=== PATIENT | male | born 1965 | race Caucasian/White ===

== ENCOUNTER → 2019-08-26 11:38 | Outpatient (BNVA) | payer BC, MEDICARE, SELFPAY | PROVIDERS: Visit Provider Family Medicine | DX: J44.9 Chronic obstructive pulmonary disease, unspecified (principal); Z13.220 Encounter for screening for lipoid disorders; Z13.228 Encounter for screening for other metabolic disorders | CPT/HCPCS: 80053; 80061; 84153; 84443; 85025 ==

== ENCOUNTER → 2020-01-03 10:01 | Outpatient (BNVA) | payer BC, MEDICARE, SELFPAY | PROVIDERS: Visit Provider Family Medicine | DX: Z12.11 Encounter for screening for malignant neoplasm of colon (principal); D49.89 Neoplasm of unspecified behavior of other specified sites; N53.9 Unspecified male sexual dysfunction; E78.5 Hyperlipidemia, unspecified; J44.9 Chronic obstructive pulmonary disease, unspecified | CPT/HCPCS: 80053; 80061; 85025 ==

== ENCOUNTER → 2020-04-11 11:37 | Outpatient (BNVA) | payer BC, MEDICARE, SELFPAY | PROVIDERS: PCP Family Medicine; Referring Provider Family Medicine; Visit Provider Orthopaedic Surgery | DX: M67.40 Ganglion, unspecified site (principal); M25.569 Pain in unspecified knee | CPT/HCPCS: 73560; 73565; 81003 ==

== ENCOUNTER → 2020-05-02 10:36 | Outpatient (BNVA) | payer BC, MEDICARE, SELFPAY | PROVIDERS: PCP Family Medicine; Visit Provider Family Medicine | DX: J44.9 Chronic obstructive pulmonary disease, unspecified (principal); E78.1 Pure hyperglyceridemia; Z12.11 Encounter for screening for malignant neoplasm of colon; G47.30 Sleep apnea, unspecified | CPT/HCPCS: 80053; 80061; 84443; 85025 ==

== ENCOUNTER → 2020-08-16 09:40 | Outpatient (BNVA) | payer BC, MEDICARE, SELFPAY | PROVIDERS: PCP Family Medicine; Visit Provider Family Medicine | DX: E78.1 Pure hyperglyceridemia (principal); R53.83 Other fatigue; J44.9 Chronic obstructive pulmonary disease, unspecified; Z68.28 Body mass index [BMI] 28.0-28.9, adult; F17.210 Nicotine dependence, cigarettes, uncomplicated; Z71.89 Other specified counseling | CPT/HCPCS: 80053; 80061; 84403; 84443; 85025 ==

== ENCOUNTER → 2020-12-25 11:09 | Outpatient (BNVA) | payer MEDICARE, SELFPAY | PROVIDERS: PCP Family Medicine; Visit Provider Urology | DX: N48.6 Induration penis plastica (principal); R68.82 Decreased libido; E78.1 Pure hyperglyceridemia; J44.9 Chronic obstructive pulmonary disease, unspecified; F17.211 Nicotine dependence, cigarettes, in remission; Z71.89 Other specified counseling | CPT/HCPCS: 80053; 80061; 81003; 84403; 84443; 85025 ==

== ENCOUNTER → 2021-04-23 11:37 | Outpatient (BNVA) | payer MEDICARE, SELFPAY | PROVIDERS: PCP Family Medicine; Visit Provider Family Medicine | DX: R68.82 Decreased libido (principal) | CPT/HCPCS: 84403 ==

== ENCOUNTER 2022-01-02 20:33 | Emergency (ER) | payer MEDICARE, SELFPAY ==
[2022-01-02 20:59] VITALS: BMI 24.1
--- NOTE | 2022-01-02 21:01 | XRR_ITS ---
PROCEDURE INFORMATION: Exam: XR Right Ankle Exam date and time: 01/02/2022 9:08 PM Age: 56 years old Clinical indication: Injury or trauma; Other: Twisted ankle; Blunt trauma; Right TECHNIQUE: Imaging protocol: Radiologic exam of the Right ankle. Views: 3 or more views. COMPARISON: No relevant prior studies available. FINDINGS: Bones/joints: Normal joint alignment. No erosion. No significant arthritis. No definite fractures are visible, however on the lateral view linear lucencies are crossing the calcaneus. Uncertain if this is projectional or could represent acute fracture. Soft tissues: Diffuse soft tissue swelling. XR/XR ankle RT min 3V* [id number] IMPRESSION: Lucencies cross the calcaneus. Possibly projectional, but cannot exclude calcaneus fracture. Correlate for site of pain. If patient has direct heel pain and correlating mechanism, dedicated calcaneus views recommended.
[2022-01-02 21:02] VITALS: BP 142/94; PULSE 102; RESP 16; TEMP 36.6; O2SAT 98
[2022-01-02] MEDS: HYDROcodone-acetaminophen 5-325 mg Tablet 1 TAB PO ×2 (21:09→21:51)
--- NOTE | 2022-01-02 21:22 | ED_ITS ---
HPI - Extremity Problem General: Chief complaint: Extremity Injury, Lower Stated complaint: Ankle Pain Time Seen by Provider: 01/02/22 20:58 Source: patient Mode of arrival: ambulatory Limitations: no limitations History of Present Illness: 56-year-old male sent from long-term he states that he had slipped on a step twisted his ankle also struck his heel. He states he has right ankle pain laterally along with pain over his calcaneus. States pain sharp in nature rated a 6 out of 10 has not been able to bear weight. Associated symptoms: Deny chest pain, fever(s) or rash Review of Systems Const: Denies: fever(s), chills, body aches or change in appetite Eyes: Denies: blurry vision or eye discomfort ENMT: Denies: throat pain or dental pain Card: Denies: chest pain Resp: Denies: dyspnea GI: Denies: abdominal pain, nausea, vomiting or diarrhea : Denies: dysuria Musc: Reports: extremity pain Skin/Breast: Denies: rash Neuro: Denies: headache(s) Psych: Denies: depression Vince/Lymph: Denies: easy bruising All/Imm: Denies: urticaria PFSH ED PFSH: Medical History COPD (chronic obstructive pulmonary disease) Hx of hepatitis C (~2009) did 72 weeks of treatment Peyronie's disease Smoker Family History Father , at age 72 Dementia Lung disease Social History Alcohol intake: former Counseling given: No Marital status: Current occupational status: disabled History of recent travel: No Physical Exam Const: COMMON NORMALS: no acute distress and patient oriented x3 HENMT: COMMON NORMALS: normocephalic HEAD & SCALP: normocephalic Eye: COMMON NORMALS: conjunctivae normal CONJUNCTIVA: Yes conjunctivae normal Neck/C-Spine: COMMON NORMALS: full ROM and supple Chest: COMMONS NORMALS: normal inspection of the chest Resp: COMMON NORMALS: normal respiratory effort Cardio: COMMON NORMALS: regular rate, regular rhythm and No murmurs present (Cardio) RATE: regular rate RHYTHM: regular rhythm GI: INSPECTION: Yes normal to inspection Extremity: NARRATIVE EXTREMITY EXAM: Swelling to right lateral ankle tenderness over the ankle along with the calcaneus. Neuro: COMMON NORMALS: patient oriented x3, moves all extremities and no focal motor deficits Psych: COMMON NORMALS: mental status grossly normal, Normal thought process present and cooperative THOUGHT PROCESS: Normal thought process present Skin: COMMON NORMALS: no rashes or lesions noted and no wounds GENERAL SKIN EXAM: no rashes or lesions noted Course Vital Signs: Vital signs: Vital Signs Temperature 97.8 F 01/02/22 21:02 Pulse Rate 102 H 01/02/22 21:02 Respiratory Rate 16 01/02/22 21:02 Blood Pressure 142/94 01/02/22 21:02 Pulse Oximetry 98 01/02/22 21:02 Oxygen Delivery Me thod 01/02/22 21:02 MDM - Extremity (Nontraumatic) Medical Decision Making Patient presents with an ankle sprain x-ray shows a possible calcaneus fracture as well. We will splint him having immobilized and follow-up with podiatry. Discharge Plan Discharge Patient Disposition: Home Clinical Impression: Ankle sprain and strain, Calcaneal fracture Condition: Stable Prescriptions: No Action naproxen sodium [Aleve] 220 mg tablet 220 mg PO BID PRN marijuana PO PRN testosterone cypionate 200 mg/mL kit 200 mg IM .monthly Qty: 1 2RF aspirin 325 mg tablet 325 mg PO DAILY (DME) nebulizer supplies See Rx Instructions .Route .MEDSUPPLY Qty: 1 0RF Rx Instructions: As directed albuterol sulfate 2.5 mg /3 mL (0.083 %) solution for nebulization 2.5 mg INHALATION Q6H PRN (Reason: bronchospasm) Qty: 360 3RF fenofibrate 160 mg tablet See Rx Instructions .ROUTE .COMPLEX Qty: 90 0RF Dose Instruction: TAKE 1 TABLET BY MOUTH DAILY Rx Instructions: TAKE 1 TABLET BY MOUTH DAILY albuterol sulfate 90 mcg/actuation HFA aerosol inhaler See Rx Instructions .ROUTE .COMPLEX Qty: 8.5 3RF Dose Instruction: INHALE 2 PUFFS INTO LUNGS EVERY 6 HOURS NEEDED FOR SHORTNESS OF BREATH OR WHEEZING Rx Instructions: INHALE 2 PUFFS INTO LUNGS EVERY 6 HOURS NEEDED FOR SHORTNESS OF BREATH OR WHEEZING Spiriva with HandiHaler 18 mcg capsule, w/inhalation device 1 cap inhalation DAILY Qty: 60 2RF Rx Instructions: puncture 1 cap using device; one dose = 2 inhalations Discharge Orders: Discharge ED (Routine); Ordered 01/02/22 Ordered By: Sonya Cai Referrals: Romeo Martell DPM [Physician] - 1-3 days Aranza Mullins MD [Primary Care Provider] - Discharge Diet: Advance as tolerated Discharge Activity: Resume usual activity Patient Instructions: Ankle Sprain (ED), Calcaneal Fracture (ED) Coding Level of Care Code ED Surg Nurse for Marian Hager
[2022-01-02 21:59] VITALS: PULSE 87; RESP 20; O2SAT 97
--- NOTE | 2022-01-03 13:46 | DCPLANNER ---
Addendum entered by Nilsa Johnson 01/10/22 12:00: Patient had a follow up appointment scheduled with ortho - patient did attend appointment. Addendum entered by Nilsa Johnson 01/07/22 16:20: Patient has a follow up appointment scheduled for Thursday, January 08, 2022 at 2:[address] Martell at ortho. Clinic will call patient with appointment information. Original Note: systems project manager had message to schedule a follow up appointment with ortho. systems project manager sent patients information to the front office staff at ortho. Patients information will be printed and reviewed. Clinic will call patient with appointment information.
== END 2022-01-02 22:02 | disposition home or self-care (01) ==
PROVIDERS: Emergency Provider Emergency Medicine; PCP Family Medicine
DX: S92.001A Unspecified fracture of right calcaneus, initial encounter for closed fracture (principal); S96.911A Strain of unspecified muscle and tendon at ankle and foot level, right foot, initial encounter; W18.43XA Slipping, tripping and stumbling without falling due to stepping from one level to another, initial encounter; Y92.89 Other specified places as the place of occurrence of the external cause; Z86.19 Personal history of other infectious and parasitic diseases
CPT/HCPCS: 29515; 73610; 99283; E0114

== ENCOUNTER 2022-01-08 15:41 | Outpatient (CLI) | payer MEDICARE, SELFPAY | END 2022-01-08 15:42 | disposition home or self-care (01) | LOC: SPT 15:42 | PROVIDERS: PCP Family Medicine; Visit Provider Podiatrist Foot & Ankle Surgery | DX: S92.001D Unspecified fracture of right calcaneus, subsequent encounter for fracture with routine healing (principal); X58.XXXD Exposure to other specified factors, subsequent encounter | CPT/HCPCS: 97760; L4361 ==

== ENCOUNTER → 2022-02-13 07:42 | Outpatient (BNVA) | payer MEDICARE, SELFPAY | PROVIDERS: PCP Family Medicine; Visit Provider Podiatrist Foot & Ankle Surgery | DX: S92.014A Nondisplaced fracture of body of right calcaneus, initial encounter for closed fracture (principal); W18.40XA Slipping, tripping and stumbling without falling, unspecified, initial encounter | CPT/HCPCS: 73650 ==

== ENCOUNTER → 2022-03-13 08:27 | Outpatient (BNVA) | payer MEDICARE, SELFPAY | PROVIDERS: PCP Family Medicine; Visit Provider Podiatrist Foot & Ankle Surgery | DX: S92.014D Nondisplaced fracture of body of right calcaneus, subsequent encounter for fracture with routine healing (principal); W10.9XXD Fall (on) (from) unspecified stairs and steps, subsequent encounter | CPT/HCPCS: 73650; 99214 ==

== ENCOUNTER 2022-11-18 11:04 | Outpatient (CLI) | payer OTHER, SELFPAY ==
--- NOTE | 2022-11-18 12:26 | XR_ITS ---
WS: [id number] EXAMINATION: XR chest 2V* [id number] REASON FOR EXAM: COPD COMPARISON: None available. ORDER DATE: 11/18/2022 12:38 PM FINDINGS: The lungs are clear of infiltrate, but appear hyperinflated. The cardiac and mediastinal outlines are unremarkable. There are no significant pleural effusions . No significant abnormalities are noted in the spine or remainder of the bony thorax. XR/XR chest 2V* [id number] IMPRESSION: NO ACUTE PULMONARY CHANGE. HYPERINFLATION POSSIBLY DUE TO COPD
[2022-11-18 13:10] VITALS: PULSE 84; RESP 18; O2SAT 97
[2022-11-18] MEDS: albuterol 2.5 mg/3 mL Neb INHALATION (13:10)
[2022-11-18 13:15] VITALS: PULSE 88
== END 2022-11-18 11:05 | disposition home or self-care (01) ==
PROVIDERS: PCP Family Medicine; Visit Provider Dermatology
DX: J44.9 Chronic obstructive pulmonary disease, unspecified (principal)
CPT/HCPCS: 71046; 94060

== ENCOUNTER 2024-03-10 15:52 | Emergency (ER) | payer MEDICARE, SELFPAY ==
--- NOTE | 2024-03-10 15:53 | XRR_ITS ---
PROCEDURE INFORMATION: Exam: XR Chest Exam date and time: 03/10/2024 6:06 PM Age: 58 years old Clinical indication: Shortness of breath; Additional info: SOB TECHNIQUE: Imaging protocol: Radiologic exam of the chest. Views: 1 view. COMPARISON: CR XR chest 2V* [id number] 11/18/2022 12:38 PM FINDINGS: Lungs: Unremarkable. No consolidation. Pleural spaces: Unremarkable. No pleural effusion. No pneumothorax. Heart/Mediastinum: Unremarkable. No cardiomegaly. Bones/joints: Unremarkable. XR/XR chest 1V portable [id number] IMPRESSION: No acute findings.
--- NOTE | 2024-03-10 15:57 | ECG_ITS ---
[facility] Test Date: 2024-03-10 Pat Name: Nikolai De Leon Department: Room: Gender: Male Fiberglasser: : 1965 Requested By: Sonya Cai Order Number: [id number] Shweta MD: Henri Shaw M.D. Measurements Intervals Gordon Rate: 112 P: 72 LA: 155 QRS: 55 QRSD: 64 T: 76 QT: 308 QTc: 421 Interpretive Statements SINUS TACHYCARDIA POSSIBLE LEFT ATRIAL ENLARGEMENT [-0.1mV P-WAVE IN V1/V2] ABNORMAL RHYTHM ECG No previous ECG available for comparison Electronically Signed On 03-10-2024 21:18:54 [employer] by Henri Shaw M.D. [email or web address]
[2024-03-10 16:00] VITALS: BP 133/92; PULSE 114; RESP 22; TEMP 37.6; O2SAT 95; BMI 26.9
[2024-03-10 17:10] LABS: Basophils # 0.1 10^3/uL (0.0-0.1); Basophils % 0.4 %; Eosinophils # 0.2 10^3/uL (0.0-0.8); Eosinophils % 1.1 %; Hematocrit 47.8 % (37-53); Lymphocytes # 1.7 10^3/uL (0.8-4.8); Lymphocytes % 12.6 %; Mean Corpuscular HGB Conc 32.4 g/dL (30-55); Mean Corpuscular Hemoglobin 28.4 pg (27-33); Mean Corpuscular Volume 87.5 fl (82-101); Mean Platelet Volume 9.6 fL (7.4-10.4); Monocytes # 1.3 10^3/uL (0.2-0.9); Monocytes % 9.6 %; Nucleated Red Blood Cells % 0 %; Platelet Count 281 10^3/cmm (157-399); Red Blood Count 5.46 10^6/uL (3.85-5.65); Red Cell Distribution Width 12.9 % (12.1-15.1)
[2024-03-10 17:36] LABS: Alanine Aminotransferase 22 U/L (0-41); Albumin Level 3.9 g/dL (3.5-5.2); Alkaline Phosphatase 82 U/L (40-130); Blood Urea Nitrogen 8 mg/dL (6-20); Calcium 8.8 mg/dL (8.5-10.5); Carbon Dioxide 26 mmol/L (22-29); Chloride 101 mmol/L (98-107); Globulin 3.8 g/dL (1.3-4.6); Glomerular Filtration Rate 116.7 mL/min (90-130); Glucose 106 mg/dL (65-115); NT Pro B Type Natriuretic Pept 37 pg/mL (0-125); Osmolality Calculated 285 mOsm/kg (285-295); Sodium 138 mmol/L (136-145); Total Bilirubin 0.3 mg/dL (0.15-1.2); Total Protein 7.7 g/dL (6.6-8.7)
[2024-03-10 18:22] LABS: Anion Gap 15.5 (5-19); Aspartate Amino Transferase 27 U/L (0-40); Potassium 4.5 mmol/L (3.5-5.1)
--- NOTE | 2024-03-10 19:30 | ED_ITS ---
HPI - SOB/Dyspnea 2 General: Chief Complaint: Shortness of Breath/Dyspnea Stated Complaint: SOB Time Seen by Provider: 03/10/24 19:25 History of Present Illness: HPI Narrative: 58-year-old man with history of COPD who presents emergency room with worsening shortness of breath. This been going on for couple days now. He has had fevers at home. Temp is 99.6 on arrival here. Is not requiring oxygen and does not require oxygen at home. No chest pain. No altered mental status. He has had increased cough. No abdominal pain. No nausea or vomiting. Related Data Home Medications Medication Instructions Recorded Confirmed aspirin 325 mg tablet 325 mg PO DAILY 08/25/19 03/13/22 marijuana PO PRN 12/25/20 03/13/22 naproxen sodium 220 mg tablet 220 mg PO BID PRN 12/25/20 03/13/22 (Aleve) Previous Rx's Medication Instructions Recorded nebulizer supplies #1 ea 09/26/20 fenofibrate 160 mg tablet See Rx Instructions .Route 12/10/20 .COMPLEX #90 tabs testosterone cypionate 200 mg/mL 200 mg IM .monthly #1 ea 04/23/21 intramuscular kit tiotropium bromide 18 mcg capsule 1 cap inhalation DAILY #60 12/12/21 with inhalation device (Spiriva inhalations with HandiHaler) diphenhydramine HCl 25 mg capsule 25 mg PO BID #30 caps 01/02/22 (Allergy Medication) CAM Boot to the Right #1 ea 01/08/22 albuterol sulfate 2.5 mg/3 mL 2.5 mg (3 mL) inhalation Q6H PRN 04/07/22 (0.083 %) solution for nebulization bronchospasm #360 mL albuterol sulfate 90 mcg/actuation See Rx Instructions .Route 04/07/22 aerosol inhaler .COMPLEX #8.5 grams doxycycline hyclate 100 mg capsule 100 mg PO BID 7 days #14 caps 03/10/24 prednisone 20 mg tablet 60 mg (3 x 20 mg) PO DAILY #20 tabs 03/10/24 Allergies Allergy/AdvReac Type Severity Reaction Status Date / Time ibuprofen Allergy hives Verified 03/10/24 16:02 [From NeoProfen (ibuprofen lysn)(PF)] Review of Systems 2 Narrative: Constitutional symptoms: Negative except as documented in HPI. Skin symptoms: Negative except as documented in HPI. Eye symptoms: Negative except as documented in HPI. ENMT symptoms: Negative except as documented in HPI. Respiratory symptoms: Negative except as documented in HPI. Cardiovascular symptoms: Negative except as documented in HPI. Gastrointestinal symptoms: Negative except as documented in HPI. Genitourinary symptoms: Negative except as documented in HPI. Musculoskeletal symptoms: Negative except as documented in HPI. Neurologic symptoms: Negative except as documented in HPI. Psychiatric symptoms: Negative except as documented in HPI. Endocrine symptoms: Negative except as documented in HPI. PFSH ED 2 PFSH: Medical History COPD (chronic obstructive pulmonary disease) Hx of hepatitis C (~2009) did 72 weeks of treatment Peyronie's disease Smoker Family History Father , at age 72 Dementia Lung disease Social History Alcohol intake: former Substance/Drug Use: current Marital status: Current occupational status: disabled Physical Exam 2 Narrative: EXAM NARRATIVE: General: Alert, no acute distress. Skin: Warm, dry. Head: Normocephalic, atraumatic. Neck: Supple, trachea midline. Eye: Extraocular movements are intact. Ears, nose, mouth and throat: Oral mucosa moist. Cardiovascular: Regular rate and rhythm, Normal peripheral perfusion. Respiratory: coarse, scattered wheeze, mild increased wob. tachypnea, breath sounds are equal, Symmetrical chest wall expansion. Gastrointestinal: Soft, Nontender, Non distended, Normal bowel sounds. Musculoskeletal: Normal ROM, no deformity. Neurological: Alert and oriented to person, place, time, and situation, No focal neurological deficit observed. Psychiatric: Cooperative, appropriate mood & affect. Course 2 Vital Signs: Vital signs: Vital Signs Temperature 99.6 F 03/10/24 16:00 Pulse Rate 114 H 03/10/24 16:00 Respiratory Rate 22 H 03/10/24 16:00 Blood Pressure 133/92 03/10/24 16:00 Pulse Oximetry 95 03/10/24 16:00 Oxygen Delivery Me thod Room Air 03/10/24 16:00 MDM - SOB/Dyspnea Medical Decision Making Differential diagnosis for patient with shortness of breath includes but is not limited to and based on the above HPI, review of systems and physical exam: Pneumonia. Bronchitis. Asthma or COPD with acute exacerbation. Acute coronary syndrome / [place]. Pulmonary embolism. Anxiety. Congestive heart failure. Viral infections including influenza and Covid-19. Atrial fibrillation. Anxiety. Pleural effusion. Pneumothorax. Orders placed to evaluate differential diagnosis based on the above differential, HPI and physical exam Lab Review: Laboratory results were reviewed and interpreted by myself the emergency room physician. Mild leukocytosis with a white count 13,000. No anemia. No renal failure. Chest x-ray: No acute process. No infiltrate. No pneumothorax. This was reviewed and interpreted by myself the emergency room physician. I also reviewed the radiology report. I reviewed the patient's medical record. Assessment and plan: COPD with acute exacerbation Upper respiratory infection ?Albuterol, DuoNeb, Solu-Medrol, doxycycline in the emergency room. - Discharged home - Discussed findings and plan with patient. Answered any questions. - All laboratory values were reviewed and interpreted personally by myself, the ER physician - All imaging was reviewed and interpreted personally by myself, the ER physician. - Evaluation and treatment of this problem were appropriate in the emergency setting Lab Data 03/10/24 16:58 03/10/24 16:58 Labs/Radiology: Radiology Impressions Chest X-Ray 03/10/24 15:53 IMPRESSION: No acute findings. Laboratory Results WBC 13.80 10^3/uL (3.29-11.43) H 03/10/24 16:58 RBC 5.46 10^6/uL (3.85-5.65) 03/10/24 16:58 Hgb 15.50 g/dL (11.27-16.99) 03/10/24 16:58 Hct 47.8 % (37-53) 03/10/24 16:58 MCV 87.5 fl (82-101) 03/10/24 16:58 MCH 28.4 pg (27-33) 03/10/24 16:58 MCHC 32.4 g/dL (30-55) 03/10/24 16:58 RDW 12.9 % (12.1-15.1) 03/10/24 16:58 Plt Count 281 10^3/cmm (157-399) 03/10/24 16:58 MPV 9.6 fL (7.4-10.4) 03/10/24 16:58 Neut % (Auto) 76.0 % 03/10/24 16:58 Lymph % (Auto) 12.6 % 03/10/24 16:58 White % (Auto) 9.6 % 03/10/24 16:58 Eos % (Auto) 1.1 % 03/10/24 16:58 Baso % (Auto) 0.4 % 03/10/24 16:58 Neut # (Auto) 10.50 10^3/uL (1.8-7.7) H 03/10/24 16:58 Lymph # (Auto) 1.7 10^3/uL (0.8-4.8) 03/10/24 16:58 White # (Auto) 1.3 10^3/uL (0.2-0.9) H 03/10/24 16:58 Eos # (Auto) 0.2 10^3/uL (0.0-0.8) 03/10/24 16:58 Baso # (Auto) 0.1 10^3/uL (0.0-0.1) 03/10/24 16:58 Nucleated RBC % (auto) 0 % 03/10/24 16:58 Nucleated RBCs # 0.0 /100WBC 03/10/24 16:58 Sodium 138 mmol/L (136-145) 03/10/24 16:58 Potassium 4.5 mmol/L (3.5-5.1) 03/10/24 16:58 Chloride 101 mmol/L (98-107) 03/10/24 16:58 Carbon Dioxide 26 mmol/L (22-29) 03/10/24 16:58 Anion Gap 15.5 (5-19) 03/10/24 16:58 BUN 8 mg/dL (6-20) 03/10/24 16:58 Creatinine 0.7 mg/dL (0.7-1.2) 03/10/24 16:58 GFR Calculation 116.7 mL/min (90-130) 03/10/24 16:58 Glucose 106 mg/dL (65-115) 03/10/24 16:58 Calculated Osmolality 285 mOsm/kg (285-295) 03/10/24 16:58 Calcium 8.8 mg/dL (8.5-10.5) 03/10/24 16:58 Total Bilirubin 0.3 mg/dL (0.15-1.2) 03/10/24 16:58 AST 27 U/L (0-40) 03/10/24 16:58 ALT 22 U/L (0-41) 03/10/24 16:58 Alkaline Phosphatase 82 U/L (40-130) 03/10/24 16:58 NT-Pro-B Natriuret Pep 37 pg/mL (0-125) 03/10/24 16:58 Total Protein 7.7 g/dL (6.6-8.7) 03/10/24 16:58 Albumin 3.9 g/dL (3.5-5.2) 03/10/24 16:58 Globulin 3.8 g/dL (1.3-4.6) 03/10/24 16:58 All radiology interpretation(s) finalized by discharge Discharge Plan Discharge Patient Disposition: Home Clinical Impression: Acute exacerbation of chronic obstructive airways disease, Acute upper respiratory infection Condition: Stable Prescriptions: New doxycycline hyclate 100 mg capsule 100 mg PO BID 7 Days Qty: 14 0RF prednisone 20 mg tablet 60 mg PO DAILY Qty: 20 0RF Rx Instructions: 3 tabs (60 mg) x 3 days. 2 tabs (40 mg) x 3 days. 1 tab (20 mg) x 3 days. 1/2 tab (10 mg) x 4 days No Action naproxen sodium [Aleve] 220 mg tablet 220 mg PO BID PRN marijuana PO PRN testosterone cypionate 200 mg/mL kit 200 mg IM .monthly Qty: 1 2RF aspirin 325 mg tablet 325 mg PO DAILY (DME) CAM Boot to the Right See Rx Instructions .Route .MEDSUPPLY Qty: 1 0RF Rx Instructions: As directed (DME) nebulizer supplies See Rx Instructions .Route .MEDSUPPLY Qty: 1 0RF Rx Instructions: As directed fenofibrate 160 mg tablet See Rx Instructions .ROUTE .COMPLEX Qty: 90 0RF Dose Instruction: TAKE 1 TABLET BY MOUTH DAILY Rx Instructions: TAKE 1 TABLET BY MOUTH DAILY Spiriva with HandiHaler 18 mcg capsule, w/inhalation device 1 cap inhalation DAILY Qty: 60 2RF Rx Instructions: puncture 1 cap using device; one dose = 2 inhalations albuterol sulfate 90 mcg/actuation HFA aerosol inhaler See Rx Instructions .ROUTE .COMPLEX Qty: 8.5 0RF Dose Instruction: INHALE 2 PUFFS INTO LUNGS EVERY 6 HOURS NEEDED FOR SHORTNESS OF BREATH OR WHEEZING Rx Instructions: INHALE 2 PUFFS INTO LUNGS EVERY 6 HOURS NEEDED FOR SHORTNESS OF BREATH OR WHEEZING albuterol sulfate 2.5 mg /3 mL (0.083 %) solution for nebulization 2.5 mg INHALATION Q6H PRN (Reason: bronchospasm) Qty: 360 0RF Allergy Medication 25 mg capsule 25 mg PO BID Qty: 30 0RF Discharge Orders: Discharge ED (Routine); Ordered 03/10/24 Ordered By: Rosa Paz Referrals: Aranza Mullins MD [Primary Care Provider] - Patient Instructions: COPD (Chronic Obstructive Pulmonary Disease) (ED), Opioid Safety, Pain Management Activity Restrictions/Additional Instructions: Thank you for choosing [facility] for your healthcare needs today. Please realize this is an emergency room and that we are providing you with a medical screening exam and this may not be complete and all inclusive of all the testing and or work up that you may need to determine your ailment or severity of your illness. You have been screened and evaluated and felt safe for discharge. Health conditions do change or evolve sometimes and as such it is important that you follow up with your Primary Doctor to be re checked, 3-5 days is a general good time frame for follow up. You are always welcome to return to the ED for re assessment if your symptoms are worsening or you have new concerns Coding Level of Care Code ED Supply Cataloguer for Marian Hager
[2024-03-10 19:53] VITALS: PULSE 110; RESP 17; O2SAT 94
[2024-03-10] MEDS: ipratropium-albuterol 3 mL Neb INHALATION (19:53)
[2024-03-10] MEDS: albuterol 2.5 mg/3 mL Neb INHALATION (19:53)
[2024-03-10 20:01] VITALS: PULSE 109
[2024-03-10 20:02] VITALS: BP 141/99; PULSE 112; RESP 18; O2SAT 95
[2024-03-10] MEDS: methylPREDNISolone sod succ 125 mg/2 mL INJ IVP (20:04)
[2024-03-10] MEDS: doxycycline 100 MG in sodium chloride 0.9% (plus) 100 ML IV (20:05)
[2024-03-10 21:17] VITALS: BP 171/91; PULSE 107; RESP 18; O2SAT 94
== END 2024-03-10 21:21 | disposition home or self-care (01) ==
PROVIDERS: Emergency Medicine; Emergency Provider Emergency Medicine; PCP Family Medicine
DX: J44.1 Chronic obstructive pulmonary disease with (acute) exacerbation (principal); J06.9 Acute upper respiratory infection, unspecified; Z79.82 Long term (current) use of aspirin
CPT/HCPCS: 71045; 80053; 83880; 85025; 93005; 96365; 96375; 99285; J2919; J3490; J7613